=== PATIENT | male | born 1980 | race Hispanic/Latino ===

== ENCOUNTER 2025-02-15 05:30 | Emergency (ER) | payer OTHER ==
[~2025-02-15] VITALS: Ht 170.2 cm; Wt 96.6 kg
[2025-02-15 05:53] VITALS: TEMP 97.9
--- NOTE | 2025-02-15 05:59 | ERN ---
ED Note History of Present Illness Stated Complaint: C/O HIGH B/P, SWELLING TO LOWER EXTREMITIES Chief Complaint: Medical Clearance Time Seen by MD: 05:34 Dictation: 44-year-old male was brought in by [employer] for medical clearance. Patient was found walking, the patient stated that he from [place] came to see his father in [place] who has 90 years old. He does stated that he has history of hy pertension and hemorrhoids. Allergies: Coded Allergies: No Known Allergies (Unverified Allergy, Unknown, 02/15/25) Past Medical History Past Medical History: Hypertension, Other Additional Past Medical Hx: GASTRITIS Surgical History: Unknown Review of System Dictation Constitutional: Negative for fever,chills, and weight loss Eyes: Negative for injury, pain,redness, and discharge ENT: Negative for injury,pain or swelling Cardiovascular: Negative for chest pain, palpitations, and edema Respiratory: Negative for shortness of breath, cough, and wheezing, Abdomen/GI: Negative for abdominal pain, nausea, vomiting, diarrhea, and constipation Back: Negative for injury and pain : Negative for injury, bleeding and discharge MS/Extremity: Negative for injury and deformity Skin: Negative for rash, and discoloration Neuro: Negative for headache, weakness, numbness, tingling, and seizure Psych: Negative for suicide ideation, homicidal ideation, and hallucinations Initial Vital Sign VS Vital Signs Date Time Temp Pulse Resp B/P (MAP) Pulse Ox O2 Delivery O2 Flow Rate FiO2 02/15/25 05:34 97.9 92 20 147/94 99 Room Air 02/15/25 05:53 0 21 Physical Exam Dictation General: awake, alert, NAD Head/Face: Normocephalic, atraumatic Eyes: PERRL, EOMI, vision at baseline ENT: oral cavity clear, TMs clear, no signs of infection Neck: Trachea midline, supple, no nuchal rigidity Cardiovascular: RRR, normal S1/S2, No MRGs, no JVD Respiratory: CTAB, no respiratory distress, No rales or wheezes Abdomen: Soft, non-tender, non-distended, normal bowel sounds, no guarding or rebound. Skin: Warm, dry, normal turgor, no rash MS/Extremity: Pulses equal, no cyanosis, neurovascular intact, FROM Neuro: COAx4, GCS 15, strength 5/5, CN 2-12 intact, normal cerebellar exam, normal gait, Psych: Normal behavior, mood, and affect normal Results (Laboratory/Radiology) Laboratory/Radiology Laboratory Tests Test 02/15/25 06:14 02/15/25 07:07 02/15/25 08:20 Sodium Level 137 mmol/L (136-145) Potassium Level 3.4 mmol/L (3.5-5.1) L Chloride Level 101 mmol/L (101-111) Carbon Dioxide Level 27 mmol/L (21-32) Blood Urea Nitrogen 17 mg/dL (7-18) Creatinine 0.9 mg/dL (0.5-1.3) Glomerular Filtration Rate Calc 107 mL/min (>90) Random Glucose 116 mg/dL (70-105) H Total Calcium 8.5 mg/dL (8.5-10.1) White Blood Count 13.5 K/uL (4.8-10.8) H Red Blood Count 5.26 MIL/uL (4.50-6.20) Hemoglobin 16.2 g/dL (14.0-18.0) Hematocrit 48.1 % (42-54) Mean Corpuscular Volume 91.4 fL (79-99) Mean Corpuscular Hemoglobin 30.8 pg (27.0-33.0) Mean Corpuscular Hemoglobin Concent 33.7 g/dL (32.0-36.0) Red Cell Distribution Width 13.5 % (11.0-15.5) Platelet Count 191 K/uL (130-400) Mean Platelet Volume 10.0 fL (7.5-10.5) Immature Granulocyte % (Auto) 0.6 % (0-1) Neutrophils (%) (Auto) 76.8 % (40.0-77.0) Lymphocytes (%) (Auto) 13.0 % (21.0-51.0) L Monocytes (%) (Auto) 9.0 % (3.0-13.0) Eosinophils (%) (Auto) 0.2 % (0.0-8.0) Basophils (%) (Auto) 0.4 % (0.0-5.0) Neutrophils # (Auto) 10.4 K/uL (1.8-7.7) H Lymphocytes # (Auto) 1.8 K/uL (1.0-4.8) Monocytes # (Auto) 1.2 K/uL (0.1-1.0) H Eosinophils # (Auto) 0.03 K/uL (0.00-0.70) Basophils # (Auto) 0.06 K/uL (0.00-0.20) Absolute Immature Granulocyte (auto 0.08 K/uL (0-1) Nucleated Red Blood Cells 0.0 % (0.0-0.19) Urine Color YELLOW (YELLOW) Urine Appearance CLEAR (CLEAR) Urine pH 5.5 (5.0-8.0) Urine Specific Hayden 1.027 (1.001-1.031) Urine Protein 10 mg/dL (NEGATIVE) H Urine Glucose (UA) NEGATIVE mg/dL (NEGATIVE) Urine Ketones 40 mg/dL (NEGATIVE) H Urine Occult Blood +- (TRACE) (NEGATIVE) H Urine Nitrate NEGATIVE (NEGATIVE) Urine Bilirubin NEGATIVE mg/dL (NEGATIVE) Urine Urobilinogen 0.2 mg/dL (0.2-1.0) Urine Leukocyte Esterase 25 Yesy/uL (NEGATIVE) H Urine RBC 0-1 /HPF (0-1) Urine WBC 6-10 /HPF (0-1) H Urine Squamous Epithelial Cells FEW /HPF (0-2) Urine Bacteria None /HPF (None Seen) Urine Opiates Screen NEGATIVE (NEGATIVE) Urine Barbiturates Screen NEGATIVE (NEGATIVE) Urine Phencyclidine Screen NEGATIVE (NEGATIVE) Urine Amphetamines Screen NEGATIVE (NEGATIVE) Urine Benzodiazepines Screen NEGATIVE (NEGATIVE) Urine Cocaine Screen NEGATIVE (NEGATIVE) Urine Marijuana (THC) Screen POSITIVE (NEGATIVE) H ED Course ED Course Orders Procedure Category Date Status Time Drug Screen Urine LAB 02/15/25 Complete 05:52 Lactated Ringers PHA 02/15/25 Complete 1000ml (Lactated 06:00 Basic Metabolic Panel LAB 02/15/25 Complete 05:56 Urinalysis Profile LAB 02/15/25 Complete 05:56 Cbc With Differential LAB 02/15/25 Complete 07:00 Lisinopril 20mg PHA 02/15/25 Complete (Prinivil 20mg) 07:30 Culture Urine CLAIRE 02/15/25 In Process 08:47 Current Medications Medications (Trade) Dose Ordered Sig/Leonor Route PRN Reason Start Time Stop Time Status Last Admin Dose Admin Lactated Ringer's (Lactated Ringers 1000ml) 1,000 ml ONCE ONCE IV 02/15/25 06:00 02/15/25 06:01 DC 02/15/25 07:31 Lisinopril (Prinivil 20mg) 20 mg ONCE ONCE PO 02/15/25 07:30 02/15/25 07:31 DC 02/15/25 07:31 Vital Signs Date Time Temp Pulse Resp B/P (MAP) Pulse Ox O2 Delivery O2 Flow Rate FiO2 02/15/25 06:57 66 16 133/81 100 Room Air* 0 21 02/15/25 05:53 97.9 91 16 149/93 100 Room Air* 0 21 02/15/25 05:34 97.9 92 20 147/94 99 Room Air Medical Decision Making MDM MDM: Differential diagnosis: Rationale: Tests considered and ordered secondary to shared decision making include: Previous outside records reviewed: Old ER visits. Risk of complication and/or morbidity or mortality of patient management: None Medications-Per medication reconciliation Need for hospitalization: Patient does not meet criteria for hospitalization. Need for emergency major/minor surgery: No There are no social concerns with this patient. Prescription drug management Prescriptions will include symptomatic care Patient's prior external medical records from other ER visits were reviewed by me as indicated. Prior testing and results from previous visits were reviewed. Prior tests were taken into account with medical decision making and resource utilization, independent historian/historians were used to obtain complete medical history. I independently interpreted the test that were performed, results were reviewed by me and considered findings on radiology if ordered. Medical management and examination interpretation discussions were had by me with other qualified healthcare professionals as indicated for the patient's care. Patient handed off at shift change pending lab evaluation of labs vital signs stable labs all stable patient medically cleared for senior living DX & DISP Disposition: Discharge Departure Impression: Primary Impression: Medical clearance for incarceration Condition: Stable DIVYA AUGUSTINE MD Feb 15, 2025 05:58 CHRISTAL TERRAZAS MD Feb 15, 2025 09:26
[2025-02-15 06:43] LABS: CREATININE 0.9 mg/dL (0.5-1.3); GLOMERULAR FILTR. RATE CALC 107.0 mL/min (>90); GLUCOSE,RANDOM 116.0 mg/dL (70-105); SODIUM SERUM 137.0 mmol/L (136-145); UREA NITROGEN, BLOOD 17.0 mg/dL (7-18)
[2025-02-15 06:57] VITALS: BP 133/81; PULSE 66; RESP 16; O2SAT 100
--- NOTE | 2025-02-15 07:10 | NUR ---
REPORT GIVEN TO MAHESH DUMONT
[2025-02-15 07:12] LABS: IMMATURE GRANULOCYTE ABSOLUTE 0.08 K/uL (0-1); NUCLEATED RED BLOOD CELLS 0.0 % (0.0-0.19); PLATELET COUNT (AUTO) 191 K/uL (130-400); RED BLOOD CELL COUNT(AUTO) 5.26 MIL/uL (4.50-6.20); RED CELL DISTRIBUTION WIDTH 13.5 % (11.0-15.5); WHITE BLOOD COUNT (AUTO) 13.5 K/uL (4.8-10.8)
[2025-02-15] MEDS: LACTATED RINGERS 1000ML IV ONE (07:31)
[2025-02-15] MEDS: LISINOPRIL 20 MG TABLET PO ONE (07:31)
[2025-02-15 08:38] LABS: APPEARANCE,URINE CLEAR (CLEAR); GLUCOSE, URINE (UA) NEGATIVE (NEGATIVE); LEUKOCYTE ESTERASE ,URINE 25 Leu/uL (NEGATIVE); NITRATE,URINE NEGATIVE (NEGATIVE); OCCULT BLOOD,URINE +- (TRACE) (NEGATIVE)
[2025-02-15 08:39] LABS: AMPHET/METH SCREEN,URINE NEGATIVE (NEGATIVE); BARBITURATE SCREEN, URINE NEGATIVE (NEGATIVE); CANNABINOID SCREEN,URINE POSITIVE (NEGATIVE); COCAINE SCREEN,URINE NEGATIVE (NEGATIVE)
[2025-02-15 08:41] LABS: ADD UA MICROSCOPIC YES
[2025-02-15 08:43] LABS: SQUAMOUS EPITHELIAL CELL,UR FEW /HPF (0-2)
--- NOTE | 2025-02-15 09:27 | NUR ---
0915 PER [employer] INFORMATICIAN, STATES PT BECAME UPSET WITH HIM, AND PULLED OUT IV. IV WITH CATHETER ON FLOOR, PT WAS ANGRY STATED (HE WANT TO LEAVE AND DOES WANT ANYTHING FROM ANYONE HERE.) INFOMED DR. TERRAZAS. IV SITE BLEEDING, RADHA AND ANTON PLACED TO LEFT ARM IV SITE.
--- NOTE | 2025-02-15 09:30 | NUR ---
PT UPSET, REFUSED LAST SET OF VITALS, DID NOT ALLOW ME TO PLACED BLOOD PRESSURE CUFF BACK ON.
--- NOTE | 2025-02-15 09:42 | NUR ---
PT MEDICALLY CLEARED BY DR. TERRAZAS, DISCHARGE DOCUMENTATION AND CLEARANCE FORM GIVEN TO BP AGENT. PT REFUSED TO SIGN DISCHARGE, BECAME UPSET VERBALLY AGGRESSIVE TOWARD BP AGENT AND TECH MIYA. PT ESCORTED OUT TO LOBBY , PT REFUSED W/C TO TRANSPORT VEHICLE, STATED ( HE DOESNT NEED NOTHING, WALKED OUT WITH BP AGENT).
== END 2025-02-15 09:46 | disposition home or self-care (01) ==
LOC: EEVIPCON 05:30 → EDH 05:30
DX: I10 Essential (primary) hypertension (principal); R22.43 Localized swelling, mass and lump, lower limb, bilateral; Z87.19 Personal history of other diseases of the digestive system
CPT/HCPCS: 99283; 96360; 80048; 80305; 85025; 87086; 81001; 36415; J7120